=== PATIENT | female | born 2000 | race Caucasian/White ===

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

== ENCOUNTER 2021-03-03 19:04 | Emergency (ER) | payer OTHER, SELFPAY ==
[2021-03-03 19:12] VITALS: BP 127/78; PULSE 91; RESP 18; TEMP 36.9; O2SAT 100
--- NOTE | 2021-03-03 19:37 | ED.FEMALEGU ---
HPI - Female Genitourinary General Chief complaint: Urogenital-Female Stated complaint: Vaginal pain, swelling Time Seen by Provider: 03/03/21 19:18 Source: patient and RN notes reviewed Mode of arrival: ambulatory Limitations: no limitations History of Present Illness HPI Narrative: Patient presents today complaining of a 2-day history of swollen, red, and painful external genitalia. Pain is significantly worsened with urination. She also reports a thin white vaginal discharge. Denies any itching, urinary frequency, hematuria, abdominal or back pain. She is not currently menstruating. States that this week she was hiking and had on sweaty clothing and had been swimming frequently. Related Data Allergies Allergy/AdvReac Type Severity Reaction Status Date / Time No Known Allergies Allergy Verified 03/03/21 19:10 Review of Systems Review of Systems: Narrative: CONSTITUTIONAL: Denies body aches, fever, chills, or sweats. EYES: Denies visual changes, redness, or discharge. ENT: Denies rhinorrhea, congestion, sore throat, or otalgia. CARDIOVASCULAR: Denies chest pain, palpitations, or edema. RESPIRATORY: Denies cough or dyspnea. GASTROINTESTINAL: Denies abdominal pain, nausea, vomiting, or diarrhea. GENITOURINARY: Denies hematuria. + Vaginal swelling, redness, pain, vaginal discharge SKIN: Denies rash, itching, or wounds. MUSCULOSKELETAL: Denies back pain, joint pain, or myalgia. NEUROLOGIC: Denies headache, numbness, tingling, or weakness. PSYCH: Denies depression or anxiety. PMFSH Social History Social History Gender identity (if verbalized by the patient): Female Comments At time of signature, I have reviewed and agree with nursing past medical, surgical, social and family history unless otherwise noted. Please see nursing chart for further information. There is no relevant family history pertinent to the presenting complaint Exam Narrative: Exam Narrative: GENERAL: Well-appearing, well-nourished, and in no acute distress. HEAD: Normocephalic, atraumatic. EYES: EOMI. No redness or drainage. Conjunctivae normal. ENT: Mucous membranes pink and moist. NECK: Normal AROM. CHEST: No respiratory distress. : Multiple scattered ulcerations of the bilateral inner and outer labia and vulva on an erythematous base, consistent with herpes simplex lesions. Very tender to even light touch. Patient has thin white vaginal discharge evident from external exam. Mild external genital swelling as well. Would not tolerate speculum exam due to external pain, so this was deferred. MUSCULOSKELETAL: No bony tenderness. EXTREMITIES: Normal range of motion. No edema. SKIN: Warm, dry, no rash. Capillary refill normal. Normal skin turgor. NEURO: No focal deficits. Alert and oriented x3. Gait steady. PSYCH: Normal affect. No signs of depression or anxiety. Course Course Emergency Course: vaginal culture for BV and herpes culture swabs obtained. Will treat patient for presumed HSV lesions and possible yeast. Anticipatory guidance given. Vital Signs Vital signs: Vital Signs Temperature 98.4 F 03/03/21 19:12 Pulse Rate 91 03/03/21 19:12 Respiratory Rate 18 03/03/21 19:12 Blood Pressure 127/78 03/03/21 19:12 Pulse Oximetry 100 03/03/21 19:12 Temperature 98.4 F 03/03/21 19:12 Pulse Rate 91 03/03/21 19:12 Respiratory Rate 18 03/03/21 19:12 Blood Pressure 127/78 03/03/21 19:12 Pulse Oximetry 100 03/03/21 19:12 Reviewed. Pt has been instructed to follow up with her PCP regarding her elevated blood pressure today. MDM - Female Genitourinary Differential Diagnosis Differential diagnosis: Likely bacterial vaginosis, vaginitis and other (Herpes simplex, Anay) Lab Data Labs: Urine Characteristics Clear Critical Care Time Critical Care Time Critical Care Time: No Discharge Plan Discharge Clinical Impression: Female genital
== END 2021-03-03 19:53 | disposition home or self-care (01) ==
PROVIDERS: Emergency Provider Nurse Practitioner; PCP Pediatrics
DX: R10.2 Pelvic and perineal pain (principal); N89.8 Other specified noninflammatory disorders of vagina
CPT/HCPCS: 87070; 87077; 87255; 99214; G0463